=== PATIENT | female | born 1970 | race African-American/Black ===

== ENCOUNTER 2020-10-24 15:56 | Outpatient (RCR) | payer OTHER, SELFPAY ==
[2015-01-23 08:27] VITALS: BMI 31.1
[2020-10-24] MEDS: COVID-19 VACC, MRNA(PFIZER)/PF 30 MCG/0.3 ML SYRINGE IM (13:41)
[2020-11-14] MEDS: COVID-19 VACC, MRNA(PFIZER)/PF 30 MCG/0.3 ML SYRINGE IM (13:42)
== END 2020-10-24 23:59 ==
LOC: IMMUN 15:56
PROVIDERS: PCP Preventive Medicine Occupational Medicine; Referring Provider Family Medicine; Visit Provider Family Medicine
DX: Z23 Encounter for immunization (principal)
CPT/HCPCS: 0001A; 0002A; 91300